=== PATIENT | female | born 1965 | race Caucasian/White ===

== ENCOUNTER → 2019-07-24 | Outpatient (CLI) | payer OTHER ==
--- NOTE | 2019-07-25 08:54 | RAD ---
DATE: 07/24/2019 EXAM: DIGITAL SCREEN BILAT W/CAD HISTORY: Routine screening COMPARISON: None. This exam is the baseline. This study was interpreted with the benefit of Computerized Aided Detection (CAD). Breast Density: SCATTERED The breast parenchyma shows scattered fibroglandular densities. Breast parenchyma level B. FINDINGS: Minimal benign calcifications are present. No masses, distortion, or suspicious calcification clusters. IMPRESSION: Benign findings BI-RADS CATEGORY: 1 NEGATIVE RECOMMENDED FOLLOW-UP: 12M 12 MONTH FOLLOW-UP PQRS compliance statement: Patient information was entered into a reminder system with a target due date for the next mammogram. Mammography is a sensitive method for finding small breast cancers, but it does not detect them all and is not a substitute for careful clinical examination. A negative mammogram does not negate a clinically suspicious finding and should not result in delay in biopsying a clinically suspicious abnormality. "Our facility is accredited by the [employer] Mammography [employer]."
== END | disposition home or self-care (01) ==
LOC: MAMMO 14:25
PROVIDERS: ATTEND Nurse Practitioner Family
DX: Z12.31 Encounter for screening mammogram for malignant neoplasm of breast (principal); N64.89 Other specified disorders of breast
CPT/HCPCS: 77067

== ENCOUNTER → 2020-08-18 | Outpatient (CLI) | payer OTHER ==
[~2020-08-18] MED LIST: AMLO-186 PO; ATOR40TA59 PO; BUPR150T11 PO; FERR142T13 PO; HYDR25TA PO; HYDR25TA10 PO; METF10007 PO; OMEP-346 PO; QUET100T4 PO; ROPI2TAB10 PO; SITA100T PO
--- NOTE | 2020-08-18 12:35 | RAD ---
EXAM: Bilateral screening mammogram. HISTORY: 54-year-old female presents for screening mammography. TECHNIQUE: Full-field digital craniocaudal and mediolateral oblique views of both breasts are obtaine d for evaluation. Computer aided detection was applied. COMPARISON: 07/24/2019 BREAST PARENCHYMAL DENSITY: Level A - Mostly fat. FINDINGS: There is no new suspicious mass, microcalcification or region of architectural distortion. There are a few benign calcifications within both breasts. IMPRESSION: BI-RADS Category 2: Benign finding(s). RECOMMENDATION: Annual mammography is recommended. If your mammogram demonstrates that you have dense breast tissue, which could hide abnormalities, and if you have other risk factors for breast cancer that have been identified, you might benefit from s upplemental screening tests that may be suggested by your ordering physician. Dense breast tissue, i n and of itself, is a relatively common condition. This information is not provided to cause undue c oncern, but rather to raise your awareness and to promote discussion with your physician regarding th e presence of other risk factors, in addition to dense breast tissue. A report of your mammography re sults will be sent to you and your physician. You should contact your physician if you have any ques tions or concerns regarding this report. Mammography is a sensitive method for finding small breast cancers, but it does not detect them all a nd is not a substitute for careful clinical examination. A negative mammogram does not negate a clin ically suspicious finding and should not result in delay in biopsying a clinically suspicious abnorma lity. PQRS compliance statement - Patient information was entered into a reminder system with a target due date for the next mammogram. "Our facility is accredited by the [employer] Mammography [employer]." Electronically signed by: Danuta Martinez MD (08/18/2020 12:33 PM) [id number]
== END ==
LOC: MAMMO 11:09
PROVIDERS: ATTEND Nurse Practitioner Family
DX: Z12.31 Encounter for screening mammogram for malignant neoplasm of breast (principal)
CPT/HCPCS: 77067

== ENCOUNTER → 2020-09-08 | Outpatient (CLI) | payer OTHER | LOC: LAB 15:00 | PROVIDERS: ATTEND Nurse Anesthetist, Certified Registered | DX: Z01.812 Encounter for preprocedural laboratory examination (principal); D50.9 Iron deficiency anemia, unspecified; T30.0 Burn of unspecified body region, unspecified degree; Z20.822 Contact with and (suspected) exposure to COVID-19; X19.XXXA Contact with other heat and hot substances, initial encounter; Y93.89 Activity, other specified; Y92.89 Other specified places as the place of occurrence of the external cause; Y99.8 Other external cause status | CPT/HCPCS: U0003 ==

== ENCOUNTER → 2020-09-11 | Day surgery (SDC) | payer OTHER ==
[~2020-09-11] MED LIST changes: +IPRATRPIUM/ALBUTEROL 0.5/2.5MG 3 ML NEBU. NEB PRN; +IV RINGERS SOLUTION,LACTATED 1,000 ML IV SCH; +LIDOCAINE 2% PF 5 ML VIAL. ONE; +MIDAZOLAM HCL PF 2 MG/2 ML VIAL. IV ONE; +ONDANSETRON PF 4 MG/2 ML VIAL. IV PRN; +PROPOFOL 10,000 MCG/ML (20ML) VIAL IV ONE
[2020-09-11 13:53] VITALS: BP 148/103
== END | disposition home or self-care (01) ==
LOC: SURG 10:06
PROVIDERS: ATTEND Internal Medicine Gastroenterology
DX: D50.9 Iron deficiency anemia, unspecified (principal); R12 Heartburn; K29.00 Acute gastritis without bleeding; K64.8 Other hemorrhoids; K62.1 Rectal polyp; K63.5 Polyp of colon; I10 Essential (primary) hypertension; E11.9 Type 2 diabetes mellitus without complications; K31.89 Other diseases of stomach and duodenum; Z79.899 Other long term (current) drug therapy; Z79.84 Long term (current) use of oral hypoglycemic drugs
CPT/HCPCS: 43239; 45381; 45385; 82947; J2001; J2704; J7120

== ENCOUNTER → 2021-04-30 | Outpatient (CLI) | payer OTHER ==
[2020-09-11 13:53] VITALS: BP 148/103
[~2021-04-30] MED LIST changes: -IPRATRPIUM/ALBUTEROL 0.5/2.5MG 3 ML NEBU. NEB PRN; -IV RINGERS SOLUTION,LACTATED 1,000 ML IV SCH; -LIDOCAINE 2% PF 5 ML VIAL. ONE; -MIDAZOLAM HCL PF 2 MG/2 ML VIAL. IV ONE; -ONDANSETRON PF 4 MG/2 ML VIAL. IV PRN; -PROPOFOL 10,000 MCG/ML (20ML) VIAL IV ONE
--- NOTE | 2021-04-30 11:23 | RAD ---
Study: 1. XR SHOULDER_LEFT 2+ VIEWS 2. XR LEFT CLAVICLE Indication: Palpable abnormality in the region of the left clavicle. Comparison: None. Findings: Dedicated AP views of the left clavicle in addition to AP internal/external rotation views of the lef t shoulder and scapular Y views. 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 Probable subarticular degenerative cystic change. No significant arthrosis at the gl enohumeral joint. Maintained coracoclavicular and acromiohumeral intervals. No fracture or aggressive abnormality of the clavicle. 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 No fracture, malalignment or significant glenohumeral joint arthrosis. Electronically signed by: EZIO MCFARLAND MD (04/30/2021 11:21 AM) [id number]
== END ==
LOC: RAD 10:11
PROVIDERS: ATTEND Nurse Practitioner Primary Care
DX: M19.012 Primary osteoarthritis, left shoulder (principal)
CPT/HCPCS: 73000; 73030

== ENCOUNTER → 2021-08-31 | Outpatient (CLI) | payer OTHER ==
[2020-09-11 13:53] VITALS: BP 148/103
--- NOTE | 2021-08-31 15:50 | RAD ---
Bilateral digital screening mammogram: Reason for examination: Routine screening. Comparison: Mammograms from 08/18/2020 and 07/24/2019. Interpretation was made with the benefit of CAD. FINDINGS: Breast density: Category A. Breast tissue is almost entirely fatty. No suspicious breast mass, malignant appearing calcifications, or architectural distortion is seen. IMPRESSION: No evidence of malignancy. Assessment: BI-RADS 1. Negative. Recommendation: Routine screening mammograms. The patient will receive a letter with the results in the mail. Patient information will be entered i nto the mammography reminder system with a target recall date for the next mammogram. A reminder surinder er will be generated. Electronically signed by: Pilar Sosa MD (08/31/2021 3:47 PM) [id number]
== END ==
LOC: MAMMO 13:06
PROVIDERS: ATTEND Nurse Practitioner Primary Care
DX: Z12.31 Encounter for screening mammogram for malignant neoplasm of breast (principal)
CPT/HCPCS: 77067

== ENCOUNTER → 2021-09-02 | Outpatient (CLI) | payer OTHER ==
[2020-09-11 13:53] VITALS: BP 148/103
--- NOTE | 2021-09-02 16:37 | RAD ---
Exam: XR RT WRIST 2 VIEWS History: Right wrist pain. Carpal tunnel syndrome. Comparison: None. Findings: Osseous mineralization is normal. No acute fracture or dislocaton. No significant degenerative change s. Soft tissues are unremarkable. Impression: 1. Unremarkable left wrist. Electronically signed by: Daniel Brewster MD (09/02/2021 4:34 PM) [id number]
== END ==
LOC: RAD 15:58
PROVIDERS: ATTEND Nurse Practitioner Primary Care
DX: G56.00 Carpal tunnel syndrome, unspecified upper limb (principal); M25.531 Pain in right wrist
CPT/HCPCS: 73100